=== PATIENT | female | born 1965 | race Caucasian/White ===

== ENCOUNTER 2018-05-16 18:48 | Emergency (ER) | payer BC ==
[~2018-05-16] VITALS: Ht 157.5 cm; Wt 56.2 kg
[~2018-05-16 18:48] MED LIST: VENL150C2 PO
[2018-05-16] MEDS ORDERED: BUPR150T5 PO (19:01)
--- NOTE | 2018-05-16 19:34 | NUR ---
DR MLELY GARAY MD AT BEDSIDE FOR MSE.
--- NOTE | 2018-05-16 19:55 | NUR ---
PT AMBULATED TO AND FROM BATHROOM W/ STEADY GAIT. DENIES DIZZINESS OR SOB. NO DISTRESS NOTED. URINE SENT TO LAB.
[2018-05-16 19:56] LABS: BASOPHILS # (AUTO) 0.1 K/uL (0.0-8.0); BASOPHILS % (AUTO) 1.1 % (0.0-2.0); EOSINOPHILS # (AUTO) 0.2 K/uL (0.0-0.7); EOSINOPHILS % (AUTO) 2.5 % (0.0-7.0); HEMATOCRIT 42.2 % (31.2-41.9); HEMOGLOBIN 14.5 g/dL (10.9-14.3); LYMPHOCYTES # (AUTO) 1.6 K/uL (20.0-40.0); LYMPHOCYTES % (AUTO) 23.8 % (20.5-51.5); MEAN CORPUSCULAR HGB CONC 34 g/dL (32.3-35.6); MEAN CORPUSCULAR VOLUME 90.3 fL (75.5-95.3); MONOCYTES # (AUTO) 0.3 K/uL (2.0-10.0); NEUTROPHILS # (AUTO) 4.5 K/uL (1.8-8.9); NEUTROPHILS % (AUTO) 67.6 % (38.5-71.5); PLATELET COUNT (AUTO) 258 K/uL (179-408); RED BLOOD CELL COUNT(AUTO) 4.68 MIL/uL (3.63-4.92); WHITE BLOOD COUNT (AUTO) 6.7 K/uL (3.8-11.8)
[2018-05-16 20:05] LABS: POTASSIUM 4.6 mmol/L (3.5-5.1)
[2018-05-16 20:10] LABS: BILIRUBIN,TOTAL 0.5 mg/dL (0.2-1.0); TOTAL PROTEIN, SERUM 7.7 g/dL (6.4-8.2)
[2018-05-16 20:15] LABS: *BILIRUBIN,URIN NEGATIVE (NEGATIVE); *BLOOD, URINE NEGATIVE (NEGATIVE); *COLOR,URINE YELLOW (YELLOW); *KETONES,URINE 1+ (NEGATIVE); *PROTEIN,URINE NEGATIVE (NEGATIVE); *UROBILINOGEN,URINE 0.2 E.U./dl (NORMAL); LEUKOCYTE ESTERASE ,URINE 1+ (NEGATIVE); NITRITE, URINE NEGATIVE (NEGATIVE); UGLUCOSE NEGATIVE (NEGATIVE)
[2018-05-16 20:21] LABS: *CLARITY,URINE SLIGHTLY HAZY (CLEAR)
[2018-05-16 20:22] LABS: BACTERIA,URINE FEW /HPF (NONE SEEN); MUCUS,URINE FEW /LPF (0-FEW); RBC,URINE 0-3 /HPF (0-3); SQUAMOUS EPITHELIAL CELL,UR MODERATE /HPF (NONE SEEN)
--- NOTE | 2018-05-16 20:28 | NUR ---
RT SIDED PEDAL PULSE INTACT, CAP REFILL WNL
--- NOTE | 2018-05-16 21:57 | NUR ---
Patient discharged to home in stable conditon. Written and verbal after care instructions given. Patient verbalizes understanding of instructions. PT ambulated from ER w/ steady gait. Denies dizziness, MARCIAL, N/V, SOB. No distress noted. Pt took all personal belongings.
[2018-05-16 22:00] VITALS: BP 127/84
== END 2018-05-16 22:01 | disposition home or self-care (01) ==
LOC: ER 18:51
DX: T50.991A Poisoning by other drugs, medicaments and biological substances, accidental (unintentional), initial encounter (principal); N39.0 Urinary tract infection, site not specified; Z88.1 Allergy status to other antibiotic agents; Z88.8 Allergy status to other drugs, medicaments and biological substances; Z90.89 Acquired absence of other organs; Y92.89 Other specified places as the place of occurrence of the external cause
CPT/HCPCS: 36415; 70030-TC; 71045; 85025; 85610; 93005; A4663